=== PATIENT | female | born 1990 | race Caucasian/White ===

== ENCOUNTER → 2018-02-08 18:47 | Outpatient (CLI) | payer OTHER, SELFPAY | PROVIDERS: Visit Provider Physician Assistant | DX: N89.8 Other specified noninflammatory disorders of vagina (principal); R36.0 Urethral discharge without blood | CPT/HCPCS: 87210; 87491; 87591 ==

== ENCOUNTER → 2018-03-25 17:15 | Outpatient (CLI) | payer OTHER, SELFPAY | PROVIDERS: Visit Provider Family Medicine | DX: N89.8 Other specified noninflammatory disorders of vagina (principal) | CPT/HCPCS: 87070; 87205; 87210; 87491; 87591 ==

== ENCOUNTER → 2019-03-23 11:54 | Outpatient (CLI) | payer OTHER, SELFPAY ==
--- NOTE | 2019-03-23 11:57 | DI.RAD.S_ITS ---
PROCEDURE: XR WRIST LT MIN 3V INDICATIONS: left wrist TECHNIQUE: 3 views of the wrist were acquired. COMPARISON: None. FINDINGS: Bones: No fractures or dislocations. No suspicious bony lesions. Scaphoid view: Not obtained Soft tissues: No suspicious soft tissue calcifications. IMPRESSION: No visualized acute fracture or dislocation. However, if clinical concern and/or pain persist, short interval imaging followup in 7-10 days is recommended, as occult injury cannot be definitively excluded. Dictated by: Helen Laguerre M.D. on 03/23/2019 at 12:57 Approved by: Helen Laguerre M.D. on 03/23/2019 at 12:58
== END ==
PROVIDERS: PCP Nurse Practitioner Family; Visit Provider Nurse Practitioner Family
DX: M25.532 Pain in left wrist (principal)
CPT/HCPCS: 73110

== ENCOUNTER → 2019-04-12 10:37 | Outpatient (CLI) | payer OTHER, SELFPAY ==
[2019-04-12 12:07] LABS: Hematocrit 38.5 % (36-46); Hemoglobin 13.4 g/dL (12.0-16.0); Mean Corpuscular HGB Conc 34.8 % (30-36); Mean Corpuscular Hemoglobin 30.6 PG (26-34); Platelet Count 235 X10^3/uL (150-400); Red Blood Cell Count 4.38 X10^6/uL (4.0-5.2); Red Cell Distribution Width 12.4 % (11.6-14.8); White Blood Cell Count 6.1 X10^3/uL (4.5-11.0)
[2019-04-12 12:13] LABS: Alanine Aminotransferase 35 IU/L (9-52); Albumin 4.7 g/dL (3.5-5.0); Albumin Globulin Ratio 1.7 (1.0-2.8); Alkaline Phosphatase 52 U/L (38-126); Aspartate Aminotransferase 26 IU/L (14-36); BUN Creatinine Ratio 22.9 (6-22); Bilirubin Total 0.9 mg/dL (0.2-1.3); Blood Urea Nitrogen 16 mg/dL (7-17); Calcium 9.5 mg/dL (8.4-10.2); Carbon Dioxide 26 mmol/L (22-32); Chloride 102 mmol/L (98-107); Estimated Glomerular Filt Rate > 60.0 mL/min (>60); Globulin 2.8 g/dL (1.7-4.1); Glucose 80 mg/dL (70-100); HEMOLYSIS < 15 (0-50); Potassium 3.7 mmol/L (3.4-5.1); Sodium 139 mmol/L (137-145); Total Protein 7.5 g/dL (6.3-8.2)
== END ==
PROVIDERS: PCP Nurse Practitioner Family; Visit Provider Nurse Practitioner Family
DX: Z00.00 Encounter for general adult medical examination without abnormal findings (principal)
CPT/HCPCS: 36415; 80053; 85027

== ENCOUNTER 2019-05-15 06:43 | Day surgery (SDC) | payer OTHER, SELFPAY ==
[2019-05-15 07:15] VITALS: BP 126/83; PULSE 86; RESP 15; TEMP 36.6; O2SAT 100; BMI 27.3
[2019-05-15] MEDS: SODIUM CHLORIDE 0.9% 1,000 ML 200 ML IV (07:30)
--- NOTE | 2019-05-15 08:28 | P.HP_ITS ---
History of Present Illness History of Present Illness Date Patient Seen: 05/15/19 Time Patient Seen: 08:28 Chief complaint: [id number] Narrative: A 29-year-old female with intermittent blood per rectum who is here for diagnostic colonoscopy and possible hemorrhoidal banding. Please refer to the H& P dated 04/10/2019 for further detail. There been no interval changes in health. Patient History Medical History Abnormal Pap smear of cervix (Resolved) ADD (attention deficit disorder) (Chronic 2007) ADHD, predominantly inattentive type (Acute) Anxiety (Chronic 2006) Asthma (Chronic) Asthma (Chronic 1989) Chlamydia (Resolved 2014) CTS (carpal tunnel syndrome) (Chronic 2008) Depression (Chronic 2006) Eczema (Chronic) Fracture of hand (Resolved ~2013) Hayfever (Chronic) Hemorrhoids (Chronic 2017) Infected cat bite of finger (Resolved 11/2015) Irregular periods/menstrual cycles (Chronic) Mild persistent asthma (Acute) RLS (restless legs syndrome) (Chronic 2006) Ulcer (Chronic 2011) Surgical History Anesthesia (Resolved) History of third molar tooth extraction (Resolved ~2010) Family & Social History Family History Father No problems noted. Mother No problems noted. Sister No problems noted. Sister Thyroid disorder Sister No problems noted. Social History: household members family Tobacco & Substance use: Smoking Status Former smoker alcohol intake current Meds Home Medications and Allergies Home Medications Medication Instructions Recorded Confirmed Type dextroamphetamine-amphetamine ER 20 mg PO QAM 11/16/17 05/15/19 History 20 mg 24hr capsule,extend release albuterol sulfate 90 mcg/actuation 2 inhalation INHALATION Q6H PRN #3 03/23/19 05/15/19 Rx breath activated powder inhaler each naproxen 500 mg PO BID PRN 05/15/19 05/15/19 History Allergies Allergy/AdvReac Type Severity Reaction Status Date / Time cefaclor [From On License Of [facility]] Allergy rash Verified 05/15/19 07:13 Review of Systems Review of Systems Narrative: A complete review of systems is negative except as noted in the HPI Exam Vital Signs (past 8 hours): - 05/15/19 07:15 Temperature 97.8 F Pulse Rate 86 Respiratory Rate 15 Blood Pressure 126/83 Pulse Oximetry 100 Oxygen Delivery Method Room Air Narrative Exam Narrative: General-no acute distress, well nourished HEENT-moist mucous membranes, no scleral icterus Neck-supple, no lymphadenopathy Chest- non labored respirations, clear to auscultation bilaterally Cardiac-regular rate no peripheral edema Abdomen-soft, nontender, non distended Extremities-warm, well perfused Neurological-alert and oriented, no focal deficits Assessment & Plan Assessment and plan (1) Rectal bleed: Current visit: No Status: Acute Assessment & Plan narrative: 29-year-old female with intermittent blood per rectum here for diagnostic colonoscopy and possible hemorrhoidal banding. Please refer to the H& P dated 04/10/2019 for further detail.
[2019-05-15] MEDS: fentaNYL 250 MCG/5 ML INJ IV (08:53)
[2019-05-15] MEDS: MIDAZOLAM 5 MG/5 ML VIAL IV (08:53)
[2019-05-15 08:57] VITALS: BP 134/81; PULSE 92; RESP 15; TEMP 36.7; O2SAT 100
[2019-05-15 09:01] VITALS: BP 107/81; PULSE 98; RESP 19; O2SAT 99
--- NOTE | 2019-05-15 09:05 | PM.OP.ENDO ---
Operative Date/Time/Diagnoses Date of procedure: 05/15/19 Time of procedure: 09:05 Pre-op diagnosis: Blood per rectum Post-op diagnosis: same Procedure & Clinicians Study performed: Colonoscopy Same procedure as scheduled: Yes Indications: This is a 29-year-old female who was having some intermittent bright red blood per rectum and presents for a diagnostic colonoscopy and possible hemorrhoidal banding. Surgeon: Daniel Tran Procedure Notes SCOAP/Timeout: Performed Procedure in detail: Patient placed in left lateral decubitus position. Time out was performed. Procedural sedation was administered with Versed and Fentanyl. A rectal exam demonstrated no external hemorrhoids no internal masses. Colonoscopy scope was placed into the rectum and advanced through the colon to the cecum. The ileocecal valve was identified. The scope was then slowly withdrawn examining colon thoroughly in all directions. The colonoscopy was notable for the following 1. Quality of prep excellent 2. No masses, polyps, no internal hemorrhoids Scope withdrawal time: 6 Sedation minutes: 18 Specimen(s): none sent Complications: none Impression: Normal colonoscopy Post-procedure Recommendations: High fiber diet Disposition: same day surgery
[2019-05-15 09:06] VITALS: BP 110/65; PULSE 81; RESP 17; O2SAT 100
[2019-05-15 09:11] VITALS: BP 112/62; PULSE 84; RESP 15; O2SAT 100
[2019-05-15 09:16] VITALS: BP 109/69; PULSE 83; RESP 17; TEMP 36.5; O2SAT 99
== END 2019-05-15 09:31 | disposition home or self-care (01) ==
PROVIDERS: PCP Nurse Practitioner Family; Visit Provider Surgery
PROC: 0DJD8ZZ Inspection of Lower Intestinal Tract, Via Natural or Artificial Opening Endoscopic (ICD-10-PCS; CPT 45378; principal; 2019-05-15 08:30)
DX: K62.5 Hemorrhage of anus and rectum (principal); J45.909 Unspecified asthma, uncomplicated; F41.9 Anxiety disorder, unspecified; F32.9 Major depressive disorder, single episode, unspecified
CPT/HCPCS: 45378; 99152; J2250; J3010

== ENCOUNTER → 2020-09-24 15:05 | Outpatient (CLI) | payer OTHER, SELFPAY ==
[2020-09-24 16:39] LABS: Hematocrit 36.4 % (36-46); Hemoglobin 12.1 g/dL (12.0-16.0); Mean Corpuscular HGB Conc 33.3 % (30-36); Mean Corpuscular Hemoglobin 29.8 PG (26-34); Mean Corpuscular Volume 89.5 fL (80-100); Platelet Count 232 X10^3/uL (150-400); Red Blood Cell Count 4.07 X10^6/uL (4.0-5.2); Red Cell Distribution Width 12.6 % (11.6-14.8); White Blood Cell Count 5.9 X10^3/uL (4.5-11.0)
[2020-09-24 17:30] LABS: Alanine Aminotransferase 16 IU/L (<35); Albumin Globulin Ratio 1.4 (1.0-2.8); Alkaline Phosphatase 49 U/L (38-126); Aspartate Aminotransferase 20 IU/L (14-36); BUN Creatinine Ratio 16.7 (6-22); Bilirubin Total 0.8 mg/dL (0.2-1.3); Blood Urea Nitrogen 12 mg/dL (7-17); C-Reactive Protein Quant < 0.5 mg/dL (<1.0); Calcium 8.9 mg/dL (8.4-10.2); Carbon Dioxide 26 mmol/L (22-32); Chloride 108 mmol/L (98-107); Estimated Glomerular Filt Rate > 60.0 mL/min (>60); Globulin 2.8 g/dL (1.7-4.1); Glucose 77 mg/dL (70-100); HEMOLYSIS < 15 (0-50); Potassium 4.3 mmol/L (3.4-5.1); Sodium 140 mmol/L (137-145); Total Protein 6.8 g/dL (6.3-8.2)
[2020-09-24 17:57] LABS: TSH w/ Reflex to FT4 1.55 uIU/mL (0.47-4.68)
== END ==
PROVIDERS: PCP Nurse Practitioner Family; Referring Provider Nurse Practitioner Family; Visit Provider Nurse Practitioner Family
DX: J45.30 Mild persistent asthma, uncomplicated (principal); Z00.00 Encounter for general adult medical examination without abnormal findings; R10.12 Left upper quadrant pain; R19.5 Other fecal abnormalities
CPT/HCPCS: 36415; 80053; 84443; 85027; 86140

== ENCOUNTER → 2020-10-02 09:49 | Outpatient (CLI) | payer OTHER, SELFPAY ==
--- NOTE | 2020-10-02 09:50 | DI.US.S_ITS ---
PROCEDURE: US ABDOMEN COMPLETE INDICATIONS: left upper quadrant pain TECHNIQUE: Real-time scanning was performed of the abdominal and retroperitoneal organs, with image documentation. COMPARISON: None. FINDINGS: Liver: Liver is normal in size and homogeneous in echotexture. Gallbladder: No findings of gallstones or sludge are seen. The gallbladder wall is not thickened, measuring 3 mm or less. No specific pericholecystic fluid is seen. The sonographic Joshua sign is negative. Biliary ducts: Intrahepatic bile ducts are non-dilated. Extrahepatic bile duct caliber measures 6 mm. Normal is 6-7 mm or less in diameter, or 10 mm or less post-cholecystectomy. Pancreas: Visualized portions of the pancreas are sonographically normal. Spleen: Spleen measures at the upper limits of normal at 13 cm. No focal splenic lesions can be seen by ultrasound. Kidneys: Kidneys are normal in size and echotexture. Right kidney measures 9.7 cm long; left kidney measures 10 cm long. No hydronephrosis or nephrolithiasis. No solid masses. Aorta: Visualized aorta is normal in caliber at less than 3 cm. Iliacs: Proximal common iliac arteries are normal in caliber at less than 2.5 cm. IVC: Intrahepatic inferior vena cava is patent. Miscellaneous: No free abdominal fluid. IMPRESSION: The spleen measures at the upper limits of normal at 13 cm. No focal splenic lesions are seen. Dictated by: Karel Ellis M.D. on 10/02/2020 at 10:17 Approved by: Karel Ellis M.D. on 10/02/2020 at 10:18
== END ==
PROVIDERS: PCP Nurse Practitioner Family; Referring Provider Nurse Practitioner Family; Visit Provider Nurse Practitioner Family
DX: R10.12 Left upper quadrant pain (principal); R19.5 Other fecal abnormalities; K62.5 Hemorrhage of anus and rectum
CPT/HCPCS: 76700

== ENCOUNTER → 2022-01-06 17:46 | Outpatient (CLI) | payer OTHER, SELFPAY ==
--- NOTE | 2022-01-06 17:51 | DI.RAD.S_ITS ---
PROCEDURE: XR FOOT LT MIN 3V INDICATIONS: left foot injury TECHNIQUE: 3 views of the foot were acquired. COMPARISON: None. FINDINGS: Bones: No fractures or dislocations. No suspicious bony lesions. Soft tissues: No tibiotalar joint effusion. Achilles tendon appears normal. IMPRESSION: No visualized acute fracture or dislocation. However, if clinical concern and/or pain persist, short interval imaging followup in 7-10 days is recommended, as occult injury cannot be definitively excluded. Dictated by: Helen Laguerre M.D. on 01/06/2022 at 18:05 Approved by: Helen Laguerre M.D. on 01/06/2022 at 18:06
== END ==
PROVIDERS: Referring Provider Physician Assistant; Visit Provider Physician Assistant
DX: M79.672 Pain in left foot (principal)
CPT/HCPCS: 73630

== ENCOUNTER → 2022-01-20 16:45 | Outpatient (CLI) | payer OTHER, SELFPAY ==
--- NOTE | 2022-01-20 16:49 | DI.RAD.S_ITS ---
PROCEDURE: XR SACROILIAC JOINT MIN 3V INDICATIONS: left SI area chronic/recurring pain, assess for SI dysfunc TECHNIQUE: 3 views of the sacroiliac joints were acquired. COMPARISON: None. FINDINGS: Bones: No bony erosions or ankylosis or pronounced sclerosis identified. No suspicious bony lesions. No fractures. Soft tissues: Overlying bowel gas pattern is normal. No suspicious soft tissue densities. IMPRESSION: No definite or substantial changes of sacroiliitis identified radiographically. If symptoms persist, follow-up radiographs and/or CT or MRI may be helpful for further evaluation. Dictated by: Oneil Barraza M.D. on 01/21/2022 at 10:07 Approved by: Oneil Barraza M.D. on 01/21/2022 at 10:18
== END ==
PROVIDERS: PCP Pediatrics; Referring Provider Pediatrics; Visit Provider Pediatrics
DX: M53.3 Sacrococcygeal disorders, not elsewhere classified (principal); B35.4 Tinea corporis; J45.30 Mild persistent asthma, uncomplicated
CPT/HCPCS: 72202